=== PATIENT | male | born 1970 | race Caucasian/White ===

== ENCOUNTER → 2017-08-26 12:12 | Outpatient (CLI) | payer OTHER, SELFPAY ==
[2017-08-26 13:27] LABS: Absolute Lymphocyte Count 3.04 X10^3/ul (0.83-4.51); Basophil# 0.04 X10^3/uL; Basophil% 0.5 % (0-1); Eosinophil# 0.07 X10^3/uL; Eosinophils% 0.9 % (0-5); Hematocrit 41.5 % (40-54); Hemoglobin 14.1 g/dl (13.0-16.5); Lymphocyte # 3.04 X10^3/ul (4.0); Lymphocyte % 38.8 % (19-41); Mean Corpuscular Hgb 28.4 pg (27.0-32.0); Mean Corpuscular Volume 83.5 fL (80-94); Mean Platelet Vol. 11.3 fl (6.2-12.0); Monocyte# 0.62 X10^3/uL; Monocyte% 7.9 % (0-10); Neutrophil # 3.98 X10^3/uL (2.7-7.7); Neutrophil % 50.9 % (47-70); Platelet Count 271 K/mm3 (150-450); RBC Distribution Width CV 13.4 % (11.6-14.6); RBC Distribution Width SD 40.4 fl (35.1-43.9); Red Blood Count 4.97 M/mm3 (4.6-6.2); White Blood Count 7.8 K/mm3 (4.4-11.0)
[2017-08-26 13:28] LABS: POSITIVE COUNT NO; POSITIVE DIFFERENTIAL NO; POSITIVE MORPHOLOGY NO
[2017-08-26 13:43] LABS: Erythrocyte Sedimentation Rate 17 mm/hr (0-15)
[2017-08-26 13:50] LABS: ALB/GLOB Ratio 1.2 RATIO (0.9-2.4); AST(SGOT) 34 U/L (15-37); Alanine Aminotransfer ALT/SGPT 81 U/L (16-61); Albumin, Serum 4.2 g/dL (3.2-5.0); Alkaline Phosphatase 95 U/L (45-117); Anion Gap 9 (5-15); BUN 18 mg/dL (7-18); BUN/Creat Ratio 21.4 RATIO (10-20); CRP 4.23 mg/L (0.0-3.0); Calcium,Total 9.1 mg/dL (8.5-10.1); Chloride 105 mmol/L (98-107); Creatinine, Serum 0.84 mg/dL (0.70-1.30); EST Glomerular Filtration Rate 104 mL/min (>60); Est Glom Filt Rate - Afr Amer 126 mL/min (>60); Globulin 3.6 g/dL (2.2-4.2); Glucose 104 mg/dL (74-106); Magnesium 2.3 mg/dL (1.6-2.6); Potassium 3.8 mmol/L (3.5-5.1); Protein, Total 7.8 g/dL (6.4-8.2); Sodium Level 139 mmol/L (136-145); Thyroid Stim Hormone (TSH) 1.87 uIU/mL (0.358-3.74)
[2017-08-27 15:08] LABS: EBV Acute VCA IgM < 36.0 U/mL (0.0-35.9); EBV Early Antigen IgG 35.5 U/mL (0.0-8.9); EBV-VCA IgG > 600.0 U/mL (0.0-17.9)
[2017-08-30 08:13] LABS: Alternaria alternata <0.10 kU/L (Class 0); Aspergillus fumigatus <0.10 kU/L (Class 0); Bahia Grass <0.10 kU/L (Class 0); Beef <0.10 kU/L (Class 0); Bermuda Grass <0.10 kU/L (Class 0); Bluegrass, Kentucky <0.10 kU/L (Class 0); Cat Hair/Dander, Standard <0.10 kU/L (Class 0); Cedar, Mountain <0.10 kU/L (Class 0); Cladosporium herbarum <0.10 kU/L (Class 0); Cockroach, American <0.10 kU/L (Class 0); Corn <0.10 kU/L (Class 0); D farinae Mite <0.10 kU/L (Class 0); D pteronyssinus <0.10 kU/L (Class 0); Dog Epithelia <0.10 kU/L (Class 0); Egg, Whole <0.10 kU/L (Class 0); Elm, American White <0.10 kU/L (Class 0); Hazelnut Tree <0.10 kU/L (Class 0); Hickory, White <0.10 kU/L (Class 0); Johnson Grass <0.10 kU/L (Class 0); Maple/Box Elder <0.10 kU/L (Class 0); Milk (Cow) <0.10 kU/L (Class 0); Mucor racemosus <0.10 kU/L (Class 0); Mugwort <0.10 kU/L (Class 0); Mulberry, White <0.10 kU/L (Class 0); Nettle <0.10 kU/L (Class 0); Oak, White <0.10 kU/L (Class 0); Peanut <0.10 kU/L (Class 0); Penicillium chrysogen <0.10 kU/L (Class 0); Pigweed, Rough <0.10 kU/L (Class 0); Plantain, English <0.10 kU/L (Class 0); Pork <0.10 kU/L (Class 0); Ragweed, Short/Common <0.10 kU/L (Class 0); Sheep Sorrel(Dock) <0.10 kU/L (Class 0); Soybean <0.10 kU/L (Class 0); Stemphylium herbarum <0.10 kU/L (Class 0); Sweet Gum <0.10 kU/L (Class 0); Sycamore, American <0.10 kU/L (Class 0); Wheat <0.10 kU/L (Class 0)
[2017-08-30 09:02] LABS: Chocolate <0.10 kU/L (Class 0)
== END ==
PROVIDERS: Family Provider Family Medicine; PCP Family Medicine; Visit Provider Family Medicine
DX: J45.909 Unspecified asthma, uncomplicated (principal); R53.83 Other fatigue
CPT/HCPCS: 36415; 80053; 82306; 83735; 84403; 84443; 85025; 85652; 86003; 86005; 86140; 86663; 86664; 86665

== ENCOUNTER → 2017-09-30 07:20 | Outpatient (CLI) | payer OTHER, SELFPAY ==
--- NOTE | 2017-09-30 10:48 | EEG ---
- Electroencephalogram Date of service 09/30/17 This is an 18 channel electroencephalogram performed on this 47-year-old male who has had history of headache with severe. No history of seizures. 18 channel echoencephalogram was performed utilizing the international 10-20 electrode placement protocol. Photic stimulation, hyperventilation and EKG reference leads were also utilized. The patient remained awake throughout the recording. Background activity is 8-10 Hz symmetrically in the posterior leads which attenuates with eye opening. Hyperventilation is performed for 4 minutes with good effort with no lateralizing or epileptiform changes. The post hyperventilatory phase is unremarkable. EKG rhythm strip recording is normal. Photic stimulation does generate a normal symmetric driving response in the posterior leads. Impression: Normal awake electroencephalogram
== END ==
PROVIDERS: Family Provider Family Medicine; PCP Family Medicine; Visit Provider Family Medicine
DX: R55 Syncope and collapse (principal)
CPT/HCPCS: 95819

== ENCOUNTER → 2017-10-11 15:42 | Outpatient (CLI) | payer OTHER, SELFPAY ==
[2017-10-11 18:04] LABS: AST(SGOT) 40 U/L (15-37); Alanine Aminotransfer ALT/SGPT 87 U/L (16-61); Albumin, Serum 4.5 g/dL (3.2-5.0); Alkaline Phosphatase 100 U/L (45-117); Bilirubin, Direct 0.09 mg/dL (0.00-0.30); Globulin 3.7 g/dL (2.2-4.2); Protein, Total 8.2 g/dL (6.4-8.2)
[2017-10-15 11:58] LABS: Ferritin 340 ng/mL (26-388); GGTP 45 U/L (15-85)
[2017-10-16 14:08] LABS: Testosterone, Free 7.12 ng/dL (5.00-21.00)
[2017-10-16 14:33] LABS: Testosterone, % Free 3.11 % (1.50-4.20); Testosterone, Total 229 ng/dL (264-916)
== END ==
PROVIDERS: Family Provider Family Medicine; PCP Family Medicine; Visit Provider Family Medicine
DX: R79.89 Other specified abnormal findings of blood chemistry (principal)
CPT/HCPCS: 36415; 80076; 82728; 82977; 84402; 84403

== ENCOUNTER → 2017-10-22 07:56 | Outpatient (CLI) | payer OTHER, SELFPAY ==
--- NOTE | 2017-10-22 07:58 | US_ITS ---
STUDY: ABDOMINAL ULTRASOUND - RIGHT UPPER QUADRANT REASON FOR VISIT: Male, 47 years old. Elevated liver function tests. TECHNIQUE: Ultrasound evaluation of the right upper quadrant was performed with real-time and static teixeira-scale imaging. TECHNICAL QUALITY: Adequate. COMPARISON: None. FINDINGS: Liver: The liver measures 17.4 cm. There is increased echogenicity consistent with fatty infiltration. The bile ducts are within normal limits. There is hepatic color flow. The direction of portal flow is hepatopetal. There is no demonstrated mass lesion. Gallbladder: Normal distended gallbladder. The gallbladder wall measures 2.5 mm. There is a negative sonographic Bowers's sign. There is no pericholecystic fluid. There are no gallstones. Common Bile Duct (C.B.D.): The common bile duct measures 3.6 mm. Pancreas: Normal size of the head, body and tail of the pancreas. There is increased echogenicity of the pancreas. There is no demonstrated pancreatic mass or cyst. Right Kidney: Normal size of the right kidney. The right kidney measures 11.8 cm x 5.2 cm x 5.1 cm. Normal renal cortex. The right cortex measures 2.1 cm. There is no demonstrated renal mass or cyst. There is no right hydronephrosis. US/Liver IMPRESSION: Fatty infiltration of the liver. Electronically Signed: Jose Guadalupe Haddad MD at 9:47 EDT Tel [phone], Service support ,
== END ==
PROVIDERS: Family Provider Family Medicine; PCP Family Medicine; Visit Provider Family Medicine
DX: R79.89 Other specified abnormal findings of blood chemistry (principal)
CPT/HCPCS: 76705

== ENCOUNTER → 2017-10-28 14:47 | Outpatient (CLI) | payer OTHER, SELFPAY ==
[2017-10-30 14:35] LABS: ANTINUCLEAR ANTIBODIES DIRECT Negative (Negative)
[2017-10-31 20:07] LABS: Ceruloplasmin 30.6 mg/dL (16.0-31.0)
[2017-11-01 11:38] LABS: Anti-Smooth Muscle ABS 15 Units (0-19); HEPATITIS B SURFACE AG Negative (Negative); Hep C Antibodies <0.1 s/co ratio (0.0-0.9)
== END ==
PROVIDERS: Family Provider Family Medicine; PCP Family Medicine; Visit Provider Family Medicine
DX: R79.89 Other specified abnormal findings of blood chemistry (principal)
CPT/HCPCS: 82390; 83516; 86038; 86803; 87340

== ENCOUNTER 2017-12-01 00:48 | Emergency (ER) | payer OTHER, SELFPAY ==
[2017-12-01 00:49] VITALS: BP 132/95; PULSE 59; RESP 15; TEMP 36.4; BMI 30.7
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
--- NOTE | 2017-12-01 01:10 | ED.DEP ---
ED Disposition - Plan for ED Patient: Chief Complaint: Burn Instructions: ED Burn Thermal D 1st 2nd Dressing Prescriptions: Hydrocodone Bitart/Apap 5-325 [[place] 5MG-325MG] 1 tab PO Q4H PRN PRN 2 Days #10 tab PRN Reason: Pain Referrals: Esteban Chaves MD [Primary Care Provider] - 3-5 Days Blayne Charlton MD [STAFF PHYSICIAN] - 1-2 Days if not improving
[2017-12-01 01:39] VITALS: RESP 18
== END 2017-12-01 01:42 | disposition home or self-care (01) ==
LOC: ED 01:40
PROVIDERS: Emergency Provider Emergency Medicine; Family Provider Family Medicine; PCP Family Medicine
DX: T20.16XA Burn of first degree of forehead and cheek, initial encounter (principal); T22.10XA Burn of first degree of shoulder and upper limb, except wrist and hand, unspecified site, initial encounter; H53.8 Other visual disturbances; X19.XXXA Contact with other heat and hot substances, initial encounter; Y93.9 Activity, unspecified; Y92.9 Unspecified place or not applicable; Z86.73 Personal history of transient ischemic attack (TIA), and cerebral infarction without residual deficits
CPT/HCPCS: 99282

== ENCOUNTER → 2018-02-24 19:59 | Outpatient (CLI) | payer OTHER, SELFPAY | PROVIDERS: Family Provider Family Medicine; PCP Family Medicine; Visit Provider Psychiatry & Neurology Neurology | DX: G47.33 Obstructive sleep apnea (adult) (pediatric) (principal) | CPT/HCPCS: 95810 ==

== ENCOUNTER → 2018-04-21 20:00 | Outpatient (CLI) | payer OTHER, SELFPAY | PROVIDERS: Family Provider Family Medicine; PCP Family Medicine; Visit Provider Clinical Nurse Specialist Acute Care | DX: G47.33 Obstructive sleep apnea (adult) (pediatric) (principal); G47.419 Narcolepsy without cataplexy | CPT/HCPCS: 95811 ==

== ENCOUNTER → 2020-10-14 11:42 | Outpatient (CLI) | payer SELFPAY ==
--- NOTE | 2020-10-14 11:48 | RAD_ITS ---
STUDY: X-RAY - RIGHT FOOT CLINICAL: Male, 50 years old. Foot pain. TECHNIQUE: 3 view(s) of the foot. COMPARISON: None. FINDINGS: Small inferior calcaneal spur. Normal visualized subtalar, talonavicular, calcaneocuboid, tarsal and tarsometatarsal articulations. Normal metatarsi. Normal metatarsophalangeal joint of the great toe. Normal tibial and fibular sesamoid bones. Normal interphalangeal joint of the great toe. Normal phalanges of the great toe. Normal second through fifth metatarsophalangeal joints. Normal interphalangeal joints and phalanges of the lesser toes. The soft tissue structures are unremarkable. RAD/Foot min 3 Views IMPRESSION: Inferior calcaneal spur. No other abnormality. Electronically Signed: Ash Molina MD at 12:14 EDT , Service support ,
--- NOTE | 2020-10-14 11:49 | RAD_ITS ---
STUDY: X-RAY - RIGHT CALCANEUS REASON FOR EXAM: Male, 50 years old. Pain. TECHNIQUE: 2 view(s) of the calcaneus were obtained. COMPARISON: None. FINDINGS: Small inferior calcaneal spur. RAD/Calcaneus min 2 Views IMPRESSION: Small inferior calcaneal spur. Electronically Signed: Ash Molina MD at 12:14 EDT , Service support ,
== END ==
PROVIDERS: PCP Family Medicine; Referring Provider Family Medicine; Visit Provider Family Medicine
DX: M79.671 Pain in right foot (principal)
CPT/HCPCS: 73630; 73650

== ENCOUNTER → 2021-03-15 16:47 | Outpatient (CLI) | payer SELFPAY ==
[2021-03-15 17:52] LABS: Absolute Lymphocyte Count 2.92 X10^3/uL (0.83-4.51); Absolute Neutrophil Count 4.7 X10^3/uL (2.0-7.7); Basophil# 0.08 X10^3/uL; Basophil% 0.9 % (0-1); Eosinophil# 0.14 X10^3/uL; Eosinophils% 1.6 % (0-5); Hematocrit 44.5 % (40-54); Hemoglobin 14.4 g/dL (13.0-16.5); Lymphocyte # 2.92 X10^3/ul (0.83-4.51); Lymphocyte % 33.8 % (19-41); Mean Corp Hgb Conc 32.4 g/dL (32-36); Mean Corpuscular Volume 86.4 fL (80-94); Mean Platelet Vol. 11.6 fl (6.2-12.0); Monocyte# 0.67 X10^3/uL; Monocyte% 7.8 % (0-10); NRBC Flagged by Analyzer 0 % (0-5); Neutrophil # 4.74 X10^3/uL (2.7-7.7); Neutrophil % 54.9 % (47-70); Platelet Count 311 K/mm3 (150-450); RBC Distribution Width CV 13.4 % (11.6-14.6); RBC Distribution Width SD 42.4 fl (35.1-43.9); Red Blood Count 5.15 M/mm3 (4.6-6.2); White Blood Count 8.6 K/mm3 (4.4-11.0)
[2021-03-20 04:06] LABS: Alternaria alternata <0.10 kU/L (Class 0); Aspergillus fumigatus <0.10 kU/L (Class 0); Bahia Grass <0.10 kU/L (Class 0); Bermuda Grass <0.10 kU/L (Class 0); Bluegrass, Kentucky <0.10 kU/L (Class 0); Cat Hair/Dander, Standard <0.10 kU/L (Class 0); Cedar, Mountain <0.10 kU/L (Class 0); Cladosporium herbarum <0.10 kU/L (Class 0); Cockroach, American <0.10 kU/L (Class 0); D farinae Mite <0.10 kU/L (Class 0); D pteronyssinus <0.10 kU/L (Class 0); Dog Epithelia <0.10 kU/L (Class 0); Elm, American White <0.10 kU/L (Class 0); Hazelnut Tree <0.10 kU/L (Class 0); Hickory, White <0.10 kU/L (Class 0); Johnson Grass <0.10 kU/L (Class 0); Maple/Box Elder <0.10 kU/L (Class 0); Mucor racemosus <0.10 kU/L (Class 0); Mugwort <0.10 kU/L (Class 0); Mulberry, White <0.10 kU/L (Class 0); Oak, White <0.10 kU/L (Class 0); Penicillium chrysogen <0.10 kU/L (Class 0); Pigweed, Rough <0.10 kU/L (Class 0); Plantain, English <0.10 kU/L (Class 0); Ragweed, Short/Common <0.10 kU/L (Class 0); Sheep Sorrel(Dock) <0.10 kU/L (Class 0); Stemphylium herbarum <0.10 kU/L (Class 0); Sweet Gum <0.10 kU/L (Class 0); Sycamore, American <0.10 kU/L (Class 0)
[2021-03-20 11:15] LABS: Nettle <0.10 kU/L (Class 0)
== END ==
PROVIDERS: PCP Family Medicine; Referring Provider Family Medicine; Visit Provider Family Medicine
DX: J30.9 Allergic rhinitis, unspecified (principal)
CPT/HCPCS: 36415; 85025; 86003

== ENCOUNTER → 2021-05-22 07:09 | Outpatient (CLI) | payer SELFPAY ==
[2021-05-22 10:52] LABS: AST(SGOT) 29 U/L (15-37); Alanine Aminotransfer ALT/SGPT 79 U/L (16-61); Albumin, Serum 4.1 g/dL (3.2-5.0); Alkaline Phosphatase 99 U/L (45-117); Anion Gap 7 (5-15); BUN 21 mg/dL (7-18); BUN/Creat Ratio 20.2 RATIO (10-20); Calcium,Total 9.3 mg/dL (8.5-10.1); Chloride 107 mmol/L (98-107); Creatinine, Serum 1.04 mg/dL (0.70-1.30); EST Glomerular Filtration Rate 80 mL/min (>60); Est Glom Filt Rate - Afr Amer 97 mL/min (>60); Glucose 107 mg/dL (74-106); Potassium 4.4 mmol/L (3.5-5.1); Protein, Total 8.1 g/dL (6.4-8.2); Sodium Level 139 mmol/L (136-145); Thyroid Stim Hormone (TSH) 3.66 uIU/mL (0.358-3.74)
[2021-05-24 14:02] LABS: Vitamin D 1,25-Dihydroxy 47.6 pg/mL (19.9-79.3)
== END ==
PROVIDERS: PCP Family Medicine; Referring Provider Psychiatry & Neurology Neurology; Visit Provider Psychiatry & Neurology Neurology
DX: R55 Syncope and collapse (principal); E55.9 Vitamin D deficiency, unspecified; G43.909 Migraine, unspecified, not intractable, without status migrainosus
CPT/HCPCS: 36415; 80053; 82652; 84443

== ENCOUNTER → 2021-05-24 17:32 | Outpatient (CLI) | payer SELFPAY ==
--- NOTE | 2021-05-24 17:34 | MRI_ITS ---
EXAM: MR HEAD WITHOUT AND WITH INTRAVENOUS CONTRAST CLINICAL INDICATION: Migraine TECHNIQUE: Multiplanar and multisequence MR images of the brain were obtained without and with intravenous contrast. This report was created using [employer] report generation technology. CONTRAST: IV 20cc dotarem COMPARISON: 10.21.12 FINDINGS: BRAIN AND EXTRA-AXIAL SPACES: Unremarkable. No intra- or extra-axial hemorrhage. No evidence of acute infarct. No intracranial mass or mass effect. There is preservation of the teixeira/white matter interface. Posterior fossa structures are unremarkable. Ventricles are appropriate for age. No hydrocephalus. Basal cisterns are patent. SELLA: Unremarkable. Normal sella turcica, pituitary gland, infundibular stalk, optic chiasm and hypothalamus. AUDITORY SYSTEM: Unremarkable. The internal auditory canals are patent. BONES/JOINTS: Unremarkable. No discrete lytic or blastic abnormalities. SINUSES: There is a mucous retention cyst and/or polyp of the maxillary sinus. MASTOID AIR CELLS: Unremarkable as visualized. Clear. ORBITS: Unremarkable as visualized. Both globes, extraocular muscles, optic nerves and retrobulbar fat appear unremarkable. VASCULATURE: Unremarkable as visualized. Normal flow voids in the major intracranial circulation. MRI/Brain W/WO Contrast IMPRESSION: No acute findings in the head/brain. Electronically Signed: Steven Torres MD at 19:01 EST , Service support ,
== END ==
PROVIDERS: PCP Family Medicine; Visit Provider Psychiatry & Neurology Neurology
DX: G43.109 Migraine with aura, not intractable, without status migrainosus (principal)
CPT/HCPCS: 70553; A9575

== ENCOUNTER 2021-06-12 08:49 | Outpatient (CLI) | payer SELFPAY ==
--- NOTE | 2021-06-12 09:00 | TELEMED_ITS ---
[facility] has confirmed receipt of a request for visit. This document confirms receipt of the order initiating the consult. To find the results of the consultation, please view the patient's reports for the scanned Telemed Consult.
== END 2021-06-12 23:59 | disposition short-term general hospital (02) ==
PROVIDERS: PCP Family Medicine; Referring Provider Psychiatry & Neurology Neurology; Visit Provider Psychiatry & Neurology Neurology
DX: R55 Syncope and collapse (principal)
CPT/HCPCS: 95819

== ENCOUNTER 2021-08-18 21:47 | Emergency (ER) | payer OTHER, SELFPAY ==
[2021-08-18 21:50] VITALS: BP 130/87; PULSE 81; RESP 21; TEMP 38.2; O2SAT 100; BMI 37.0
[2021-08-18 21:54] VITALS: BP 130/87; PULSE 80; RESP 20; TEMP 38.2; O2SAT 100
[2021-08-18 21:56] VITALS: O2SAT 100
--- NOTE | 2021-08-18 22:09 | EKG12_ITS ---
Test Reason : SOB Blood Pressure : / mmHG Vent. Rate : 088 BPM Atrial Rate : 088 BPM P-R Int : 162 ms QRS Dur : 086 ms QT Int : 376 ms P-R-T Axes : 047 048 022 degrees QTc Int : 454 ms Normal sinus rhythm Normal ECG Confirmed by JEFF RAMIREZ, THERESA ([id number]), publishing editor JUAN ATKINS ([id number]) on 08/21/2021 10:59:51 AM Referred By: TL Confirmed By:THERESA AGUILAR MD
--- NOTE | 2021-08-18 22:10 | EX.ED.DYSGE1 ---
HPI History of Present Illness Chief Complaint: Shortness of Breath Informant: patient and family Narrative Narrative: Fever chills myalgias starting this morning. No cough. No headache. Diarrhea x1. Reports lightheaded symptoms with a near syncopal episode at lunchtime. No chest pains. No racing heart. Nausea without vomiting. No urinary symptoms denies sick contacts. Patient nonvaccinated for Covid or influenza this year. No Covid in the past. No loss of taste or smell. Reported Tylenol taken at 7 PM and 200 mg of Motrin taken at 9 PM. Denies syncopal episodes. Prior similar symptoms: No PFSH PFSH Medical History Asthma Hives Kidney stone Migraine Pneumonia Home Medications cetirizine 10 mg capsule 10 mg PO DAILY 05/16/21 [History Last Taken Unknown] lactobacillus combination no.9 4 billion cell capsule 4,000 mmu cells PO DAILY 05/16/21 [History Last Taken Unknown] flurbiprofen 100 mg tablet 100 mg PO TID PRN #90 tab 05/25/21 [Rx Last Taken Unknown] ondansetron HCl 4 mg tablet 4 mg PO TID PRN #90 tab 05/25/21 [Rx Last Taken Unknown] ondansetron 4 mg PO Q6H PRN #10 tab 08/19/21 [Rx Last Taken Unknown] Allergy/AdvReac Type Severity Reaction Status Date / Time Penicillins Allergy Unknown Verified 08/01/21 15:31 Family History Father Angina at rest Dementia Mother Pancreatic cancer Grandmother CVA (cerebral vascular accident) Surgical History H/O arthroscopic knee surgery H/O lithotripsy History of appendectomy Social History household members: spouse Smoking Status: Never smoker alcohol intake: current alcohol intake frequency: a few times a month Alcohol type: wine substance use type: does not use ROS ROS ED Constitutional Constitutional ED: Reports chills and fever(s); Denies sweats Eyes Eyes: Denies change in vision ENT ENT ED: Denies dysphagia or sore throat Cardiovascular Cardiovascular: Denies chest pain, leg edema, palpitations or racing heartbeat Respiratory/Chest Respiratory/Chest: Denies cough, dyspnea or dyspnea on exertion Gastrointestinal Gastrointestinal: Reports diarrhea and nausea; Denies abdominal pain or vomiting Genitourinary Genitourinary ED: Denies dysuria, hematuria or urinary frequency Musculoskeletal Musculoskeletal: Denies back pain, extremity pain or neck pain Integumentary Denies rash or wounds Neurologic Neurologic: Denies headache(s), paresthesias or weakness EXAM Physical Exam Const Vital Signs: 08/18/21 21:50 08/18/21 21:54 08/18/21 21:56 Temperature 100.8 F H 100.8 F H Temperature Source Temporal Temporal Pulse Rate 81 80 Respiratory Rate 21 H 20 H Respiratory Effort Short of Breath Respiratory Pattern Normal Blood Pressure 130/87 H 130/87 H Blood Pressure Mean 101 101 Pulse Ox 100 100 Oxygen Delivery Method Room Air Room Air Room Air 08/18/21 23:24 08/19/21 00:04 08/19/21 00:53 Temperature 99.3 F H 98.7 F Temperature Source Temporal Temporal Pulse Rate 74 87 84 Respiratory Rate 18 18 16 Respiratory Effort Respiratory Pattern Blood Pressure 106/64 107/61 106/86 H Blood Pressure Mean 78 76 Pulse Ox 94 Oxygen Delivery Method Room Air Positive well nourished and well developed Constitutional Narrative: Nontoxic however fatigued looking. General Appearance ED: well developed HEENT HEENT Narrative: Mild dry mucosal membranes. normocephalic and atraumatic Eyes PERRL, EOMs intact bilaterally and conjunctivae normal General Eye ED: Yes normal appearance of both eyes Neck no lymphadenopathy and supple General: Negative for tenderness Chest Wall Chest: Negative for tenderness Resp normal respiratory effort and normal air movement Effort and Inspection: symmetric chest movement; Negative for respiratory distress Cardio regular rate, regular rhythm and no murmurs Peripheral Pulses: pulses 2+ throughout GI normal to inspection, nondistended, normoactive bowel sounds and non-tender Palpation: Negative for guarding or rebound tenderness present Back/Spine no CVA tenderness and no thoracic nor lumbar tenderness Extremity normal to inspection General Extremety ED: Negative for edema or tenderness General Extremity: Negative for edema Neuro oriented x3 and no sensory deficits noted Sensorium / Orientation: awake and alert Skin no rashes or lesions noted and no wounds MDM MDM MDM Narrative Medical decision making narrative: EKG normal. Labs are normal. Low-grade temp on arrival optimize Motrin dosing pulse ox 100%. Denies cough or dyspnea symptoms. Influenza Covid testing both obtained negative. Discussed viral syndrome. Discussed possible false negative test and monitoring for worsening symptoms specially respiratory symptoms. He will continue Tylenol or Motrin as needed he is able to ambulate to the restroom with no return of symptoms he is feeling better after Motrin and IV fluids. He will follow-up with his PCP. Return precautions discussed. Lab Data Attestation: I reviewed the patient's lab results. Labs: Laboratory Results - last 24 hr 08/18/21 08/18/21 21:55 21:55 WBC 8.4 RBC 5.56 Hgb 15.7 Hct 47.2 MCV 84.9 MCH 28.2 MCHC 33.3 RDW Std Deviation 40.4 RDW Coeff of Can 13.0 Plt Count 291 MPV 10.9 Immature Gran % (Auto) 1.800 H Neut % (Auto) 78.6 H Lymph % (Auto) 13.7 L Winkler % (Auto) 4.4 Eos % (Auto) 1.0 Baso % (Auto) 0.5 Absolute Neuts (auto) 6.6 Absolute Lymphs (auto) 1.15 Nucleated RBC % 0 Sodium 138 Potassium 3.9 Chloride 104 Carbon Dioxide 27.0 Anion Gap 7 BUN 20 H Creatinine 1.15 Estim Creat Clear Calc 81.85 Est GFR (MDRD) Af Amer 87 Est GFR (MDRD) Non-Af 72 BUN/Creatinine Ratio 17.4 Glucose 100 Calcium 9.7 EKG Initial EKG: Attestation: I personally reviewed and interpreted this EKG as follows: Comments: Sinus rate of 88, no ST changes. Isolated T wave version leads III. Nonspecific. QTc 454. Discharge Plan Triage Chief Complaint: Shortness of Breath ED Provider: Ovi Duke Dx/Rx/DC Orders Clinical Impression: Near syncope, Acute viral syndrome, Fever Instructions: ED Fever Control (Adult), ED Near-Fainting, Uncertain Cause, ED Viral Syndrome (Adult) Prescriptions: New ondansetron 4 mg tablet,disintegrating 4 mg PO Q6H PRN (Reason: nausea and vomiting) Qty: 10 RF: 0 No Action Zyrtec 10 mg capsule 10 mg PO DAILY RF: 0 Adult 50 Plus Probiotic 4 billion cell capsule 4,000 mmu cells PO DAILY RF: 0 flurbiprofen 100 mg tablet 100 mg PO TID PRN (Reason: headache) Qty: 90 RF: 2 ondansetron HCl [Zofran] 4 mg tablet 4 mg PO TID PRN (Reason: nausea and vomiting) Qty: 90 RF: 2 Primary Care Provider: Esteban Chaves Referrals: Esteban Chaves MD [Primary Care Provider] - 3-5 Days if not improving Activity Restrictions/Additional Instructions: Influenza, Covid testing negative. Laboratory studies normal. EKG normal. Continue oral fluids for hydration at home. Continue Tylenol Motrin as needed for fever and myalgias. Disposition Disposition: Home, Self Care Discharge Date/Time: 08/19/21 01:12
[2021-08-18 22:38] LABS: Absolute Lymphocyte Count 1.15 X10^3/uL (0.83-4.51); Absolute Neutrophil Count 6.6 X10^3/uL (2.0-7.7); Basophil# 0.04 X10^3/uL; Basophil% 0.5 % (0-1); Eosinophil# 0.08 X10^3/uL; Hematocrit 47.2 % (40-54); Hemoglobin 15.7 g/dL (13.0-16.5); Lymphocyte # 1.15 X10^3/ul (0.83-4.51); Lymphocyte % 13.7 % (19-41); Mean Corp Hgb Conc 33.3 g/dL (32-36); Mean Corpuscular Hgb 28.2 pg (27.0-32.0); Mean Corpuscular Volume 84.9 fL (80-94); Mean Platelet Vol. 10.9 fl (6.2-12.0); Monocyte# 0.37 X10^3/uL; Monocyte% 4.4 % (0-10); NRBC Flagged by Analyzer 0 % (0-5); Neutrophil # 6.58 X10^3/uL (2.7-7.7); Neutrophil % 78.6 % (47-70); Platelet Count 291 K/mm3 (150-450); RBC Distribution Width SD 40.4 fl (35.1-43.9); Red Blood Count 5.56 M/mm3 (4.6-6.2); White Blood Count 8.4 K/mm3 (4.4-11.0)
[2021-08-18 22:40] LABS: Anion Gap 7 (5-15); BUN 20 mg/dL (7-18); BUN/Creat Ratio 17.4 RATIO (10-20); Calcium,Total 9.7 mg/dL (8.5-10.1); Chloride 104 mmol/L (98-107); Creatinine, Serum 1.15 mg/dL (0.70-1.30); EST Glomerular Filtration Rate 72 mL/min (>60); Est Glom Filt Rate - Afr Amer 87 mL/min (>60); Estimated Creatinine Clearance 81.85 ml/min; Glucose 100 mg/dL (74-106); Potassium 3.9 mmol/L (3.5-5.1); Sodium Level 138 mmol/L (136-145)
[2021-08-18] MEDS: Ibuprofen 200 MG Tablet 400 MG PO (23:19)
[2021-08-18] MEDS: Ondansetron 4 MG/2 ML Vial IV (23:19)
[2021-08-18] MEDS: 0.9% Normal Saline 1,000 ML 1000 ML IV (23:20)
[2021-08-18 23:24] VITALS: BP 106/64; PULSE 74; RESP 18; TEMP 37.4; O2SAT 94
[2021-08-19 00:04] VITALS: BP 107/61; PULSE 87; RESP 18; TEMP 37.1
[2021-08-19 00:53] VITALS: BP 106/86; PULSE 84; RESP 16
== END 2021-08-19 01:12 | disposition home or self-care (01) ==
PROVIDERS: Emergency Provider Emergency Medicine; PCP Family Medicine; Visit Provider Emergency Medicine
DX: B34.9 Viral infection, unspecified (principal); R06.02 Shortness of breath; R55 Syncope and collapse; R11.0 Nausea; Z87.442 Personal history of urinary calculi; Z87.01 Personal history of pneumonia (recurrent); J45.909 Unspecified asthma, uncomplicated; R50.9 Fever, unspecified
CPT/HCPCS: 80048; 85025; 87804; 87811; 93005; 96361; 96374; 99284; J7030; A4216; J2405

== ENCOUNTER → 2022-08-29 | Outpatient (CLI) | payer OTHER, SELFPAY ==
[2022-08-29 17:44] LABS: Absolute Lymphocyte Count 3.34 X10^3/uL (0.83-4.51); Absolute Neutrophil Count 4.4 X10^3/uL (2.0-7.7); Basophil# 0.05 X10^3/uL; Basophil% 0.6 % (0-1); Eosinophil# 0.11 X10^3/uL; Eosinophils% 1.2 % (0-5); Hematocrit 44.4 % (40-54); Hemoglobin 14.6 g/dL (13.0-16.5); Lymphocyte # 3.34 X10^3/ul (0.83-4.51); Lymphocyte % 37.6 % (19-41); Mean Corp Hgb Conc 32.9 g/dL (32-36); Mean Corpuscular Hgb 28.4 pg (27.0-32.0); Mean Corpuscular Volume 86.4 fL (80-94); Mean Platelet Vol. 11.5 fl (6.2-12.0); Monocyte# 0.86 X10^3/uL; Monocyte% 9.7 % (0-10); NRBC Flagged by Analyzer 0 % (0-5); Neutrophil # 4.44 X10^3/uL (2.7-7.7); Neutrophil % 49.9 % (47-70); Platelet Count 293 K/mm3 (150-450); RBC Distribution Width CV 13.3 % (11.6-14.6); RBC Distribution Width SD 41.9 fl (35.1-43.9); Red Blood Count 5.14 M/mm3 (4.6-6.2); White Blood Count 8.9 K/mm3 (4.4-11.0)
[2022-08-29 18:41] LABS: ALB/GLOB Ratio 1.2 RATIO (0.9-2.4); AST(SGOT) 41 U/L (15-37); Alanine Aminotransfer ALT/SGPT 106 U/L (16-61); Albumin, Serum 4.3 g/dL (3.2-5.0); Alkaline Phosphatase 85 U/L (45-117); Amylase 73 U/L (25-115); Anion Gap 9 (5-15); BUN 20 mg/dL (7-18); BUN/Creat Ratio 21.2 RATIO (10-20); Calcium,Total 9.5 mg/dL (8.5-10.1); Chloride 105 mmol/L (98-107); Creatinine, Serum 0.94 mg/dL (0.70-1.30); EST Glomerular Filtration Rate 90 mL/min (>60); Est Glom Filt Rate - Afr Amer 108 mL/min (>60); Globulin 3.6 g/dL (2.2-4.2); Glucose 75 mg/dL (74-106); Lipase 208 U/L (73-393); Protein, Total 7.9 g/dL (6.4-8.2); Sodium Level 140 mmol/L (136-145)
== END | disposition home or self-care (01) ==
LOC: MFPLAB 15:53
PROVIDERS: PCP Family Medicine; Referring Provider Family Medicine; Visit Provider Family Medicine
DX: R10.9 Unspecified abdominal pain (principal)
CPT/HCPCS: 36415; 80053; 82150; 83690; 85025

== ENCOUNTER → 2022-09-05 | Outpatient (CLI) | payer OTHER, SELFPAY ==
--- NOTE | 2022-09-05 07:51 | US_ITS ---
STUDY: ABDOMINAL ULTRASOUND - RIGHT UPPER QUADRANT REASON FOR VISIT: Male, 52 years old . Elevated liver function tests. Family history of pancreatic carcinoma. TECHNIQUE: Ultrasound evaluation of the right upper quadrant was performed with real-time and static teixeira-scale imaging. TECHNICAL QUALITY: Adequate. COMPARISON: Comparison is made with prior study of October 22, 2017. FINDINGS: Liver: The liver measures 16.6 cm. There is increased echogenicity consistent with fatty infiltration. The bile ducts are within normal limits. There is hepatic color flow. The direction of portal flow is hepatopetal. There is no demonstrated mass lesion. Gallbladder: Normal distended gallbladder. The gallbladder wall measures 3 mm. There is a negative sonographic Bowers''s sign. There is no pericholecystic fluid. There are no gallstones. Common Bile Duct (C.B.D.): The common bile duct measures 5 mm. Pancreas: There is nonvisualization of the pancreas due to overlying bowel gas. Right Kidney: Normal size of the right kidney. The right kidney measures 11.2 cm x 5.8 cm x 6.5 cm. Normal renal cortex. The right cortex measures 1.8 cm. There is no demonstrated renal mass or cyst. There is no right hydronephrosis. US/Abdomen Limited IMPRESSION: Fatty infiltration of the liver. Electronically Signed: Jose Guadalupe Haddad MD at 15:07 EDT ,
== END | disposition home or self-care (01) ==
PROVIDERS: PCP Family Medicine; Referring Provider Family Medicine; Visit Provider Family Medicine
DX: R79.89 Other specified abnormal findings of blood chemistry (principal)
CPT/HCPCS: 76705

== ENCOUNTER → 2022-09-07 | Outpatient (CLI) | payer OTHER, SELFPAY ==
--- NOTE | 2022-09-07 13:54 | CT_ITS ---
STUDY: CT ABDOMEN WITH CONTRAST REASON FOR EXAM: Male, 52 years old. Abdominal pain. RADIATION DOSAGE (If Supplied By Facility): CTDIvol = ( 22.01 ) mGy, DLP = ( 825.95 ) mGycm TECHNIQUE: Transaxial images were obtained post I.V. administration of IV 100mL Isovue-370, and with oral contrast. Sagittal and coronal images were reconstructed. Individualized dose optimization techniques were used for this CT. COMPARISON: Comparison is made with prior examination April 01, 2014. FINDINGS: Stable 5 mm noncalcified nodule in the left lower lobe. The visualized portions of the heart are within normal limits. There is decreased attenuation of the liver consistent with steatosis. Normal gallbladder and extrahepatic biliary system. Normal spleen. Normal pancreas. Normal bilateral adrenal glands. Normal right kidney. Normal left kidney. Normal visualized stomach. Normal small intestine. Normal colon. The patient is status post cholecystectomy. Normal abdominal aorta. There is an IVC filter in place. There is borderline retroperitoneal lymphadenopathy with enlarged nodes no greater than 10mm in the short axis diameter. There is a small umbilical hernia containing fat. Normal osseous structures. CT/Abdomen WITH IV Contrast IMPRESSION: Diffuse fatty infiltration of the liver. A filter is seen within the inferior vena cava. Electronically Signed: Jose Guadalupe Haddad MD at 14:43 EDT ,
== END | disposition home or self-care (01) ==
LOC: CT 13:54
PROVIDERS: PCP Family Medicine; Visit Provider Family Medicine
DX: R10.9 Unspecified abdominal pain (principal)
CPT/HCPCS: 74160; Q9967

== ENCOUNTER 2024-01-14 20:18 | Emergency (ER) | payer OTHER, SELFPAY ==
[2024-01-14 20:19] VITALS: BP 150/97; PULSE 74; RESP 12; TEMP 36.9; O2SAT 96; BMI 34.7
--- NOTE | 2024-01-14 20:30 | EKG12_ITS ---
Test Reason : CP Blood Pressure : / mmHG Vent. Rate : 070 BPM Atrial Rate : 070 BPM P-R Int : 170 ms QRS Dur : 088 ms QT Int : 398 ms P-R-T Axes : 037 019 020 degrees QTc Int : 429 ms Sinus rhythm with marked sinus arrhythmia Otherwise normal ECG Confirmed by KAJAL RAMIREZ, JUSTINA ([id number]), medical editor ROOSEVELT CARTER ([id number]) on 01/20/2024 8:37:06 AM Referred By: Confirmed By:TORRES RDZ MD
[2024-01-14] MEDS: Aspirin 81 MG TAB.CHEW 324 MG PO (20:35)
--- NOTE | 2024-01-14 20:40 | RAD_ITS ---
INDICATION: chest pain EXAMINATION/TECHNIQUE: X-RAY - XR Chest 2 Views COMPARISON: 07/01/2017 chest radiograph. Findings: Frontal and lateral views of the chest. LUNG PARENCHYMA: No acute focal airspace disease or mass lesion. PLEURA: No pleural effusion. No pneumothorax. HEART/GREAT VESSELS: Cardiomediastinal silhouette is unremarkable. BONES: Osseous structures are unremarkable for age. RAD/Chest PA and Lateral IMPRESSION: Chest with no acute disease. Electronically Signed: Benedicto Coleman MD at 21:11 EDT ,
[2024-01-14 20:51] LABS: Absolute Lymphocyte Count 3.98 X10^3/uL (0.83-4.51); Absolute Neutrophil Count 7.2 X10^3/uL (2.0-7.7); Basophil% 0.8 % (0-1); Eosinophil# 0.12 X10^3/uL; Hematocrit 44.7 % (40-54); Hemoglobin 14.9 g/dL (13.0-16.5); Lymphocyte # 3.98 X10^3/ul (0.83-4.51); Lymphocyte % 31.9 % (19-41); Mean Corp Hgb Conc 33.3 g/dL (32-36); Mean Corpuscular Hgb 27.9 pg (27.0-32.0); Mean Corpuscular Volume 83.7 fL (80-94); Mean Platelet Vol. 10.8 fl (6.2-12.0); Monocyte# 0.87 X10^3/uL; NRBC Flagged by Analyzer 0 % (0-5); Neutrophil # 7.24 X10^3/uL (2.7-7.7); Neutrophil % 57.9 % (47-70); Platelet Count 313 K/mm3 (150-450); RBC Distribution Width CV 13.2 % (11.6-14.6); Red Blood Count 5.34 M/mm3 (4.6-6.2); White Blood Count 12.5 K/mm3 (4.4-11.0)
[2024-01-14 21:06] LABS: Anion Gap 6 (5-15); BUN 20 mg/dL (7-18); Calcium,Total 9.6 mg/dL (8.5-10.1); Chloride 108 mmol/L (98-107); Creatinine, Serum 1.33 mg/dL (0.70-1.30); EST Glomerular Filtration Rate 60 mL/min (>60); Est Glom Filt Rate - Afr Amer 72 mL/min (>60); Estimated Creatinine Clearance 83.06 ml/min; Glucose 101 mg/dL (74-106); Potassium 3.9 mmol/L (3.5-5.1); Sodium Level 141 mmol/L (136-145); Troponin-I HS (w/2H Reflex) 10 pg/mL (3.0-78.0)
[2024-01-14] MEDS: Ondansetron 4 MG/2 ML Vial IV (21:17)
[2024-01-14 21:18] VITALS: BP 124/80; PULSE 64; RESP 13; O2SAT 97
[2024-01-14 22:00] VITALS: BP 125/74; PULSE 64; RESP 18; O2SAT 95
--- NOTE | 2024-01-14 22:00 | ED.VIS.CHEST ---
HPI <Dr. Samir Dunne MD - Last Filed: 01/16/24 07:13> History of Present Illness Chief Complaint: Chest Pain Detail of Chief Complaint: Patient presents with left-sided sharp chest pain. This occurred at rest. Onset/Context/Timing Onset: Today and Hours Activity at onset: sudden Timing: Continuous and Waxes and wanes Quality: Positive for Sharp Location: Left Chest Current Severity: Mild Maximum Severity: Severe Worsened By: Nothing Relieved By: Nothing Associated Symptoms: Positive for Dyspnea and - (Complained of aching in his left shoulder); Negative for Nausea, Vomiting, Diaphoresis, Cough, Fever, Lightheadedness, Acid Reflux or Palpitations Narrative Narrative: Patient is a 53-year-old male. His last stress test was 2012 and cardiac cath revealed mitral valve prolapse. There is no significant abnormality. Patient denies fever, chills night sweats. Patient denies headache, visual, ocular auditory symptoms. Patient denies disc abasia, dysphonia or reflux-like symptoms. Patient does have history of reflux, however. He also has remote history of DVT. Patient denies chest trauma. Patient denies pleuritic pain. Patient denies leg pain, swelling discoloration. Patient does have a filter in place. Patient denies heartburn, indigestion, food intolerance. Patient Nuys black or maroon-colored stool. Patient Nuys change in color, consistency or caliber of his stool. Patient denies weight gain or weight loss. Prior Similar Symptoms: Yes (Mitral valve prolapse) Recent Illness/Hospitalization: No CVD Risk Factors: Negative for Hypertension, Diabetes, Hypercholesterolemia, Family History 1' </=55 or Smoking PE Risk Factors: Negative for Recent Travel/Surgery, Recent Immobilization, Prior DVT or PE, Cancer or OCP + Smoking + >/=35 TAD Risk Factors: Negative for Marfan's Syndrome, Hypertension or Family History PFSH <Dr. Samir Dunne MD - Last Filed: 01/16/24 07:13> [facility] Medical History Pneumonia Kidney stone Hives Migraine Asthma Home Medications ?Medication ?Instructions ?Recorded ?Last Taken ?Type cetirizine 10 mg capsule (Zyrtec) 10 mg PO DAILY 05/16/21 Unknown History lactobacillus combination no.9 4 4,000 mmu cells PO DAILY 05/16/21 Unknown History billion cell capsule (Adult 50 Plus Probiotic) flurbiprofen 100 mg tablet 100 mg PO TID PRN headache #90 tabs 05/25/21 Unknown Rx Allergy/AdvReac Type Severity Reaction Status Date / Time Penicillins Allergy Unknown Verified 01/14/24 20:22 Family History Father Angina at rest Dementia Mother Pancreatic cancer Grandmother CVA (cerebral vascular accident) Surgical History H/O lithotripsy H/O arthroscopic knee surgery History of appendectomy Social History household members: spouse Smoking Status: Never smoker alcohol intake: current alcohol intake frequency: a few times a month Alcohol type: wine substance use type: does not use ROS <Dr. Samir Dunne MD - Last Filed: 01/16/24 07:13> ROS ED Constitutional Constitutional ED: Denies chills, fever(s), subjective, sweats or weight loss Eyes Eyes: Reports none; Denies blurry vision or change in vision ENT ENT ED: Denies rhinorrhea or sore throat Cardiovascular Cardiovascular: Reports as per HPI; Denies orthopnea or paroxysmal nocturnal dyspnea Respiratory/Chest Respiratory/Chest: Reports dyspnea; Denies cough, dyspnea on exertion, orthopnea or paroxysmal nocturnal dyspnea Gastrointestinal Gastrointestinal: Denies abdominal pain, constipation, diarrhea, melena, nausea or vomiting Genitourinary Genitourinary ED: Denies dysuria, hematuria or urinary frequency Musculoskeletal Musculoskeletal: Denies arthralgias, back pain, myalgias or neck pain Integumentary Denies rash Neurologic Neurologic: Denies headache(s) or paresthesias Psychiatric Psychiatric: Denies anxiety or depression Endocrine Endocrinology: Denies cold intolerance or heat intolerance Hematologic/Lymphatic Hematologic/Lymphatic: Denies easy bleeding or easy bruising EXAM <Dr. Samir Dunne MD - Last Filed: 01/16/24 07:13> Physical Exam Const Vital Signs: 01/14/24 20:19 01/14/24 21:18 01/14/24 22:00 Temperature 98.4 F Temperature Source Oral Pulse Rate 74 64 64 Respiratory Rate 12 13 18 Blood Pressure 150/97 H 124/80 H 125/74 H Blood Pressure Mean 114 94 91 Pulse Ox 96 97 95 Oxygen Delivery Method Room Air Room Air Room Air 01/14/24 23:00 Temperature Temperature Source Pulse Rate 70 Respiratory Rate 22 H Blood Pressure 122/81 H Blood Pressure Mean 94 Pulse Ox 94 Oxygen Delivery Method Room Air Positive well nourished and well developed Constitutional Narrative: Patient at 1 point experiences of again pain and states the pain was sharp. There was absolutely no eye contact during the history or physical. answered many of his questions. Blood pressure initially was elevated 150/97. Repeat approxi-1 hour later is 124/80. General Appearance ED: well developed; Negative for pallor HEENT Reports moist mucous membranes normocephalic and atraumatic Eyes PERRL and EOMs intact bilaterally General Eye ED: Negative for pale conjunctiva or scleral icterus Neck no lymphadenopathy, supple and no JVD Neck Narrative: Trachea is midline. There is no carotid bruits. Chest Wall inspection of chest normal and palpation of chest normal Resp normal respiratory effort and clear to auscultation bilaterally Cardio regular rate, regular rhythm, S1 normal heart sound, S2 normal heart sound and no murmurs Peripheral Pulses: pulses 2+ throughout GI normal to inspection, nondistended, normoactive bowel sounds, soft to palpation, non-tender, non-distended and no masses; Negative for hepatosplenomegaly Back/Spine no CVA tenderness and no thoracic nor lumbar tenderness Extremity normal to inspection Extremity Narrative: There is no asymmetry, swelling, discoloration, leg vein distention, palpable cords or tenderness along the distribution of the deep venous system. Neuro oriented x3 and CN's II-XII intact bilaterally Sensorium / Orientation: awake and alert Psych Psych Narrative: Affect is flat. Skin no rashes or lesions noted and no wounds General Skin Exam: Negative for jaundice or pallor <Dr. Louie Alvarez, DO - Last Filed: 01/14/24 23:42> Physical Exam Const Vital Signs: 01/14/24 20:19 01/14/24 21:18 01/14/24 22:00 Temperature 98.4 F Temperature Source Oral Pulse Rate 74 64 64 Respiratory Rate 12 13 18 Blood Pressure 150/97 H 124/80 H 125/74 H Blood Pressure Mean 114 94 91 Pulse Ox 96 97 95 Oxygen Delivery Method Room Air Room Air Room Air 01/14/24 23:00 Temperature Temperature Source Pulse Rate 70 Respiratory Rate 22 H Blood Pressure 122/81 H Blood Pressure Mean 94 Pulse Ox 94 Oxygen Delivery Method Room Air [facility] <Dr. Samir Dunne MD - Last Filed: 01/16/24 07:13> [facility] Narrative Medical decision making narrative: Differential diagnosis include cardiac versus noncardiac. Cardiac would include cardiac ischemia, myocarditis, pericarditis, mitral valve prolapse. The 10% of patients with mitral prolapse have chest pain of unknown etiology. Physical exam and history not consistent with pulmonary embolus. History is not suggestive or consistent with aortic dissection. History & Record Review Discussion w/independent historian: Patient and Significant other Lab Data Attestation: I reviewed the patient's lab results. Lab results narrative: White count is slightly elevated with no shift. This is nonspecific. H&H is normal with normal indices. Electrolyte panel is remarkable for a BUN of 20 and a creatinine of 1.33 with an estimated GFR of 60. First troponin is normal at 10. Awaiting 2-hour troponin. Labs: Laboratory Results - last 24 hr 01/14/24 01/14/24 20:25 22:52 WBC 12.5 H RBC 5.34 Hgb 14.9 Hct 44.7 MCV 83.7 MCH 27.9 MCHC 33.3 RDW Std Deviation 40.0 RDW Coeff of Can 13.2 Plt Count 313 MPV 10.8 Immature Gran % (Auto) 1.400 H Neut % (Auto) 57.9 Lymph % (Auto) 31.9 [place] % (Auto) 7.0 Eos % (Auto) 1.0 Baso % (Auto) 0.8 Absolute Neuts (auto) 7.2 Absolute Lymphs (auto) 3.98 Nucleated RBC % 0 Sodium 141 Potassium 3.9 Chloride 108 H Carbon Dioxide 27.0 Anion Gap 6 BUN 20 H Creatinine 1.33 H Estim Creat Clear Calc 83.06 Est GFR (MDRD) Af Amer 72 Est GFR (MDRD) Non-Af 60 BUN/Creatinine Ratio 15.0 Glucose 101 Calcium 9.6 Troponin I High Sens 10 9 Radiography Chest X-Ray - ED: 2 View and Read by ED Physician (Normal cardiac silhouette and size. [place] is normal. Lung parenchyma is normal. There are evidence of infiltrate or CHF. [place] structures are unremarkable. There is infill reviewed and interpreted by me at 07/11/2002.) Diagnostic Testing: Clinical Impression(s) from Imaging Studies Chest X-Ray 01/14/24 20:40 IMPRESSION: Chest with no acute disease. Electronically Signed: Benedicto Coleman MD at 21:11 EDT , EKG Initial EKG: Attestation: I personally reviewed and interpreted this EKG as follows: Interpretation: Sinus Rhythm (Rate is 70. OR was 170 ms. Cures duration 88 ms. QT duration 298 ms. Gypsy is normal. There is marked sinus arrhythmia noted. There is no acute ischemic changes noted.) Treatment and Re-Evaluation :: Night physician Dr. Alvarez to check second troponin. If second troponin is normal patient is safe to go home. There was a discussion regarding PE in my opinion patient does not have a PE. There is no indication my opinion for a CTA. <Dr. Louie Alvarez, DO - Last Filed: 01/14/24 23:42> [facility] Lab Data Labs: Laboratory Results - last 24 hr 01/14/24 01/14/24 20:25 22:52 WBC 12.5 H RBC 5.34 Hgb 14.9 Hct 44.7 MCV 83.7 MCH 27.9 MCHC 33.3 RDW Std Deviation 40.0 RDW Coeff of Can 13.2 Plt Count 313 MPV 10.8 Immature Gran % (Auto) 1.400 H Neut % (Auto) 57.9 Lymph % (Auto) 31.9 [place] % (Auto) 7.0 Eos % (Auto) 1.0 Baso % (Auto) 0.8 Absolute Neuts (auto) 7.2 Absolute Lymphs (auto) 3.98 Nucleated RBC % 0 Sodium 141 Potassium 3.9 Chloride 108 H Carbon Dioxide 27.0 Anion Gap 6 BUN 20 H Creatinine 1.33 H Estim Creat Clear Calc 83.06 Est GFR (MDRD) Af Amer 72 Est GFR (MDRD) Non-Af 60 BUN/Creatinine Ratio 15.0 Glucose 101 Calcium 9.6 Troponin I High Sens 10 9 Radiography Diagnostic Testing: Clinical Impression(s) from Imaging Studies Chest X-Ray 01/14/24 20:40 IMPRESSION: Chest with no acute disease. Electronically Signed: Benedicto Coleman MD at 21:11 EDT , Chest x-ray as interpreted by the emergency medicine physician reveals no acute infiltrate pneumothorax or pleural effusion Treatment and Re-Evaluation Comments:: Patient was signed out to me while awaiting his delta troponin. Initial troponin was 10 and the 2-hour delta is 9 and then as the value is flat this goes against acute coronary syndrome. Patient's vitals have remained stable and with a normal EKG 2 normal troponins and no acute findings on chest x-ray I do not feel there is need for further workup and he is otherwise safe for discharge Discharge Plan Triage Chief Complaint: Chest Pain ED Provider: Samir Dunne Dx/Rx/DC Orders Clinical Impression: Left-sided chest pain, GERD (gastroesophageal reflux disease), Mitral valve prolapse Instructions: ED Chest Pain, Noncardiac, ED Chest Pain, Uncertain Cause, ED Mitral Valve Prolapse Prescriptions: No Action Zyrtec 10 mg capsule 10 mg PO DAILY Adult 50 Plus Probiotic 4 billion cell capsule 4,000 mmu cells PO DAILY Rx Instructions: administer with a meal flurbiprofen 100 mg tablet 100 mg PO TID PRN (Reason: headache) Qty: 90 2RF Primary Care Provider: Juan Chaves Referrals: Juan Chaves MD [Primary Care Provider] - 3-5 Days Print Language: Croatian Disposition Disposition: Home, Self Care Discharge Date/Time: 01/14/24 23:51
[2024-01-14 22:50] LABS: Reflex Troponin-HS? (from REC) Y
[2024-01-14 23:00] VITALS: BP 122/81; PULSE 70; RESP 22; O2SAT 94
[2024-01-14 23:22] LABS: Troponin-I HS 9 pg/mL (3.0-78.0)
[2024-01-14 23:47] VITALS: BP 123/78; PULSE 62; RESP 15; TEMP 36.2; O2SAT 95
== END 2024-01-14 23:51 | disposition home or self-care (01) ==
PROVIDERS: Emergency Provider Emergency Medicine; PCP Family Medicine; Visit Provider Emergency Medicine
DX: R07.9 Chest pain, unspecified (principal); K21.9 Gastro-esophageal reflux disease without esophagitis; I34.1 Nonrheumatic mitral (valve) prolapse
CPT/HCPCS: 71046; 80048; 84484; 85025; 93005; 96374; 99284; A4216; J2405

== ENCOUNTER → 2024-03-14 | Outpatient (CLI) | payer SELFPAY ==
[2024-03-14 08:44] LABS: AST(SGOT) 68 U/L (15-37); Alanine Aminotransfer ALT/SGPT 139 U/L (16-61); Albumin, Serum 4.2 g/dL (3.2-5.0); Alkaline Phosphatase 108 U/L (45-117); Bilirubin, Direct 0.14 mg/dL (0.00-0.30); Cholesterol 227 mg/dL (200); High Density Lipoprotein 42 mg/dL; Protein, Total 8.2 g/dL (6.4-8.2); Triglycerides 258 mg/dL; Very Low Density Lipoprotein 52 mg/dL (5-40)
== END | disposition home or self-care (01) ==
PROVIDERS: PCP Family Medicine; Referring Provider Internal Medicine Cardiovascular Disease; Visit Provider Internal Medicine Cardiovascular Disease
DX: R07.9 Chest pain, unspecified (principal); R00.2 Palpitations
CPT/HCPCS: 36415; 80061; 80076

== ENCOUNTER → 2024-03-19 | Outpatient (CLI) | payer SELFPAY ==
--- NOTE | 2024-03-19 06:35 | ECHOD_ITS ---
Reason For Study: PALPITATIONS Procedure This was a 2D Doppler, Color Flow transthoracic echocardiogram. Exam performed in department. Left Ventricle Normal LV size. Left ventricular systolic function is normal. The left ventricular ejection fraction is 55 %. No regional wall motion abnormalities noted. Right Ventricle Normal right ventricle. Normal systolic function. Atria Normal left atrium. Normal right atrium. Mitral Valve Normal mitral valve. Tricuspid Valve Normal tricuspid valve. Aortic Valve Trisinus/trileaflet aortic valve. Pulmonic Valve Normal pulmonic valve. Great Vessels Normal aortic root. The pulmonary artery is normal size. Normal inferior vena cava. Pericardium/Pleural No pericardial effusion. MMode/2D Measurements & Calculations LVIDd: 4.9 cm IVSd: 0.95 cm LVOT diam: 1.9 cm LVIDs: 2.7 cm LVPWd: 1.1 cm LVOT area: 2.9 cm2 RVDd: 4.0 cm FS: 45.5 % asc Aorta Diam: 4.0 cm LAV(MOD-bp): 34.4 ml LVAd ap4: 26.5 cm2 LAV(MOD-bp) Indexed: 14.9 ml/m2 LVLd ap4: 8.6 cm LAV(MOD-sp2): 29.0 ml EDV(MOD-sp4): 69.6 ml LAV(MOD-sp4): 39.1 ml EDV(sp4-el): 69.6 ml LVAs ap4: 12.9 cm2 LVLs ap4: 6.8 cm ESV(MOD-sp4): 22.7 ml ESV(sp4-el): 20.9 ml EF(MOD-sp4): 67.4 % EF(sp4-el): 69.9 % SV(MOD-sp4): 46.9 ml SV(sp4-el): 48.7 ml LA A4 area: 16.5 cm2 RA A4 area: 14.8 cm2 Time Measurements MV dec time: 0.29 sec Doppler Measurements & Calculations MV E max eddy: 53.6 cm/sec Lat Peak E' Eddy: 11.3 cm/sec Med Peak E[place]y: 9.1 cm/sec MV A max eddy: 66.3 cm/sec E/E' lat: 4.7 E/E' med: 5.9 MV E/A: 0.81 Ao V2 max: 128.7 cm/sec LV V1 max: 119.2 cm/sec MV dec slope: 187.2 cm/sec2 Ao max P.6 mmHg LV V1 max P.7 mmHg Ao V2 mean: 90.5 cm/sec LV V1 mean P.2 mmHg Ao mean P.8 mmHg LV V1 mean: 82.4 cm/sec Ao V2 VTI: 26.2 cm LV V1 VTI: 22.9 cm AV (velocity ratio): 0.87 NIKITA(I,D): 2.5 cm2 NIKITA(V,D): 2.7 cm2 SV(LVOT): 65.6 ml PA V2 max: 108.8 cm/sec TR max eddy: 275.1 cm/sec PA max PG (full): 2.6 mmHg TR max P.3 mmHg ECHO/Echo Complete Interpretation Summary Normal LV size. Left ventricular systolic function is normal. The left ventricular ejection fraction is 55 %. Structurally normal valves. Ordering Physician: Gary Sterling Referring Physician: Gary Sterling Performed By: Katie Wyatt and Student
--- NOTE | 2024-03-19 16:24 | STRESSREP ---
Stress Test Report Exercise myocardial perfusion stress test. 53-year-old male with a history of chest pain Stress protocol: Resting EKG demonstrates sinus bradycardia with a rate of 56 bpm resting blood pressure is 126/80 mmHg. The patient exercised according to the regular Chicho protocol for a total duration of 6 minutes and 32 seconds attaining a maximum heart rate of 150 bpm which was 89 per of maximum predicted heart rate; the maximum workload was 8.4 metabolic equivalents. At rest there were no ST or T wave changes noted to suggest ischemia and at peak exercise upsloping ST changes only were noted which did not meet the criteria for ischemia. No clinical angina was noted the test was terminated due to the target heart rate being achieved/fatigue. The peak blood pressure was 164/80 mmHg. Rate-pressure product was 23,600. Myocardial perfusion protocol. 14.8 mCi of technetium 99m sestamibi was injected at rest. The patient exercised according to regular Chicho protocol for total duration of 6-1/2-minute and at peak exercise 44.3 mCi of technetium 99m sestamibi was injected stress images were obtained stress and rest images were reconstructed in comparing the short axis vertical long and horizontal long axis. Gated images were also obtained. Perfusion SPECT analysis: Review of the stress images demonstrate normal uptake of tracer noted in all areas of the myocardium. The resting images similarly demonstrate normal uptake of tracer noted in all areas of the myocardium. No areas of reversibility are noted to suggest ischemia no previous infarct was noted. Gated SPECT analysis: The gated ejection fraction is 71%. Conclusion: Normal exercise myocardial perfusion stress test at a moderate workload Preserved ejection fraction ejection fraction.
== END | disposition home or self-care (01) ==
PROVIDERS: PCP Family Medicine; Referring Provider Internal Medicine Cardiovascular Disease; Visit Provider Internal Medicine Cardiovascular Disease
DX: R00.2 Palpitations (principal); R07.9 Chest pain, unspecified
CPT/HCPCS: 78452; 93017; 93306; A9500; A4216

== ENCOUNTER → 2024-04-17 | Outpatient (CLI) | payer SELFPAY ==
[2024-04-17 09:59] LABS: Hematocrit 43.7 % (40-54); Hemoglobin 14.7 g/dL (13.0-16.5); Mean Corp Hgb Conc 33.6 g/dL (32-36); Mean Corpuscular Hgb 27.9 pg (27.0-32.0); Mean Corpuscular Volume 83.1 fL (80-94); Platelet Count 283 K/mm3 (150-450); RBC Distribution Width CV 13.1 % (11.6-14.6); RBC Distribution Width SD 39.5 fl (35.1-43.9); Red Blood Count 5.26 M/mm3 (4.6-6.2)
[2024-04-17 10:04] LABS: Erythrocyte Sedimentation Rate 26 mm/hr (0-20)
[2024-04-17 11:14] LABS: Ferritin 416 ng/mL (26-388); Iron 91 ug/dL (65-175)
[2024-04-18 06:10] LABS: Ceruloplasmin 24.7 mg/dL (16.0-31.0); GGTP 46 IU/L (0-65)
[2024-04-18 14:09] LABS: ANTINUCLEAR ANTIBODIES DIRECT Negative (Negative)
== END | disposition home or self-care (01) ==
PROVIDERS: PCP Family Medicine; Referring Provider Family Medicine; Visit Provider Family Medicine
DX: R79.89 Other specified abnormal findings of blood chemistry (principal)
CPT/HCPCS: 36415; 76705; 76981; 82390; 82728; 82977; 83540; 85027; 85652; 86038

== ENCOUNTER → 2024-06-24 | Outpatient (CLI) | payer SELFPAY ==
--- NOTE | 2024-06-24 09:20 | RAD_ITS ---
INDICATION: asthma / dyspnea EXAMINATION/TECHNIQUE: X-RAY - XR Chest 2 Views COMPARISON: Prior study dated: 01/14/2024 FINDINGS: LINES/DEVICES: None. LUNGS: Mild stranding/scarring in the right midlung zone. No focal infiltrate is seen. No evidence of pleural effusions. MEDIASTINUM AND CARDIOVASCULAR STRUCTURES: Cardiac silhouette not enlarged. Central airways and mediastinal contour are unremarkable. BONES AND SOFT TISSUES: Unremarkable. RAD/Chest PA and Lateral IMPRESSION: No radiographic evidence of acute cardiopulmonary disease. Electronically Signed: Sachin Betancourt MD at 9:59 EST ,
== END | disposition home or self-care (01) ==
PROVIDERS: PCP Family Medicine; Referring Provider Family Medicine; Visit Provider Family Medicine
DX: J45.909 Unspecified asthma, uncomplicated (principal)
CPT/HCPCS: 71046

== ENCOUNTER → 2024-08-01 | Outpatient (CLI) | payer SELFPAY ==
[2024-08-01 09:37] LABS: ALB/GLOB Ratio 0.9 RATIO (0.9-2.4); AST(SGOT) 32 U/L (15-37); Alanine Aminotransfer ALT/SGPT 76 U/L (16-61); Albumin, Serum 3.9 g/dL (3.2-5.0); Alkaline Phosphatase 101 U/L (45-117); Anion Gap 5 (5-15); BUN 20 mg/dL (7-18); BUN/Creat Ratio 18.5 RATIO (10-20); Chloride 105 mmol/L (98-107); Cholesterol 204 mg/dL (200); Creatinine, Serum 1.08 mg/dL (0.70-1.30); EST Glomerular Filtration Rate 76 mL/min (>60); Est Glom Filt Rate - Afr Amer 92 mL/min (>60); Ferritin 329 ng/mL (26-388); Globulin 4.2 g/dL (2.2-4.2); Glucose 97 mg/dL (74-106); High Density Lipoprotein 42 mg/dL; Potassium 4.5 mmol/L (3.5-5.1); Protein, Total 8.1 g/dL (6.4-8.2); Sodium Level 139 mmol/L (136-145); Triglycerides 246 mg/dL; Very Low Density Lipoprotein 49 mg/dL (5-40)
[2024-08-01 09:38] LABS: Hematocrit 45.5 % (40-54); Hemoglobin 14.8 g/dL (13.0-16.5); Mean Corp Hgb Conc 32.5 g/dL (32-36); Mean Corpuscular Hgb 28.1 pg (27.0-32.0); Mean Corpuscular Volume 86.5 fL (80-94); Mean Platelet Vol. 11.2 fl (6.2-12.0); Platelet Count 311 K/mm3 (150-450); RBC Distribution Width CV 13.3 % (11.6-14.6); RBC Distribution Width SD 42.1 fl (35.1-43.9); Red Blood Count 5.26 M/mm3 (4.6-6.2); White Blood Count 11.8 K/mm3 (4.4-11.0)
[2024-08-02 08:07] LABS: GGTP 42 IU/L (0-65)
== END | disposition home or self-care (01) ==
PROVIDERS: PCP Family Medicine; Referring Provider Family Medicine; Visit Provider Family Medicine
DX: K76.0 Fatty (change of) liver, not elsewhere classified (principal)
CPT/HCPCS: 36415; 80053; 80061; 82728; 82977; 84443; 85027

== ENCOUNTER → 2025-03-24 | Outpatient (CLI) | payer SELFPAY ==
[2025-03-24 07:39] LABS: AST(SGOT) 59 U/L (<=37); Alanine Aminotransfer ALT/SGPT 98 U/L (<=46); Albumin, Serum 4.4 g/dL (3.5-5.0); Alkaline Phosphatase 86 U/L (40-129); Bilirubin, Direct 0.18 mg/dL (0.00-0.30); Cholesterol 237 mg/dL (<=200); Globulin 3.3 g/dL (2.2-4.2); Low Density Lipoprotein Calc. 157 mg/dL; Triglycerides 197 mg/dL; Very Low Density Lipoprotein 39 mg/dL (5-40); cholesterol:hdl ratio screen 5.78
== END | disposition home or self-care (01) ==
PROVIDERS: Nurse Practitioner Gerontology; PCP Family Medicine; Referring Provider Physician Assistant Medical; Visit Provider Physician Assistant Medical
DX: E78.5 Hyperlipidemia, unspecified (principal); E78.1 Pure hyperglyceridemia
CPT/HCPCS: 36415; 80061; 80076